=== PATIENT | male | born 1960 | race Two or more races ===

== ENCOUNTER 2021-09-20 15:45 | Emergency (ER) | payer OTHER ==
[~2021-09-20] VITALS: Ht 175.3 cm; Wt 77.1 kg
[2021-09-20 19:08] VITALS: BP 137/88
== END 2021-09-20 19:09 | disposition home or self-care (01) ==
LOC: ER 15:45
DX: S69.92XA Unspecified injury of left wrist, hand and finger(s), initial encounter (principal); Z60.2 Problems related to living alone; Y09 Assault by unspecified means; Y93.89 Activity, other specified; Y92.89 Other specified places as the place of occurrence of the external cause; Y99.8 Other external cause status
CPT/HCPCS: 73130-TC